=== PATIENT | female | born 1960 | race Caucasian/White ===

== ENCOUNTER 2022-08-02 12:14 | Emergency (ER) | payer OTHER ==
[2022-08-02] MEDS ORDERED: ALBUTEROL 2.5 MG/3 ML NEB SOL ONE ×3 (12:39→15:33)
[2022-08-02] MEDS ORDERED: IPRATROPIUM BROM 0.5MG/2.5ML ONE (12:39)
[2022-08-02] MEDS ORDERED: IBUPROFEN 400 MG TAB ONE (12:40)
[2022-08-02] MEDS ORDERED: IBUPROFEN 200 MG TAB PO ONE (12:41)
[2022-08-02 14:07] LABS: SARS-COV-2 RT PCR NEGATIVE (NEGATIVE)
--- NOTE | 2022-08-02 14:59 | RAD REPORT ---
EXAM DESCRIPTION: RAD - Chest Single View - 08/02/2022 2:45 pm CLINICAL HISTORY: Cough COMPARISON: No comparisons FINDINGS: Lines: None. Lungs: No evidence of edema or pneumonia. Pleural: No significant pleural effusions or pneumothorax. Cardiac: The heart size is within normal limits. Mediastinum: Within normal limits. Bones: No acute fractures. Other: Surgical clips in the left axilla. IMPRESSION: No acute cardiopulmonary disease.
--- NOTE | 2022-08-02 16:42 | EDPHYS ---
Physician Documentation [facility] Name: Galen Meyer Age: 61 yrs Sex: Female : 1960 Arrival Date: 08/02/2022 Time: 12:16 Bed 16 Private MD: ED Physician Tavares Diego HPI: 08/02 14:21 This 61 yrs old Female presents to ER via Ambulatory with complaints of Flu Symptoms, kb Dizziness. 14:21 The patient or guardian reports cough, that is intermittent, described as mild, flu kb symptoms, low-grade fever. Onset: The symptoms/episode began/occurred 3 day(s) ago. Severity of symptoms: At their worst the symptoms were moderate, in the emergency department the symptoms are unchanged. Modifying factors: The symptoms are alleviated by nothing, the symptoms are aggravated by nothing. Associated signs and symptoms: Pertinent positives: fever, Pertinent negatives: chest pain, diarrhea, ear ache, nausea, rhinorrhea, sore throat, vomiting. The patient has not experienced similar symptoms in the past. The patient has not recently seen a physician. Pt reports cough for 2 months that has been nagging, but Sunday it got worse with congestion, fever, headache and malaise. Historical: - Allergies: 12:29 No Known Allergies; ll1 - PMHx: 12:29 Hypertensive disorder; Diabetes mellitus; Hypercholesterolemia; ll1 - PSHx: 12:29 Cholecystectomy; "tubes tied"; ll1 - Immunization history:: Client reports receiving the 2nd dose of the Covid vaccine. - Social history:: Smoking status: Patient denies any tobacco usage or history of. ROS: 14:21 Cardiovascular: Negative for chest pain, palpitations, and edema. kb 14:21 Constitutional: Positive for fever, malaise. 14:21 ENT: Positive for sinus congestion. 14:21 Respiratory: Positive for cough. 14:21 Neuro: Positive for headache. 14:21 All other systems are negative. Exam: 14:21 Constitutional: This is a well developed, well nourished patient who is awake, alert, kb and in no acute distress. Head/Face: Normocephalic, atraumatic. ENT: Moist Mucous membranes Cardiovascular: Regular rate and rhythm with a normal S1 and S2. No gallops, murmurs, or rubs. No pulse deficits. Respiratory: Respirations even and unlabored. No increased work of breathing. Talking in full sentences Abdomen/GI: Soft, non-tender. No distention Skin: Warm, dry with normal turgor. Normal color. MS/ Extremity: Pulses equal, no cyanosis. Neurovascular intact. Full, normal range of motion. Neuro: Awake and alert, GCS 15, oriented to person, place, time, and situation. Moves all extremities. Normal gait. 14:21 Respiratory: Breath sounds: are clear throughout. Vital Signs: 12:29 BP 138 / 106; Pulse 140; Resp 18; Temp 101.3(O); Pulse Ox 96% on R/A; Weight 85.73 kg; ll1 Height 5 ft. 6 in. (167.64 cm); Pain 5/10; 13:00 BP 141 / 92; Pulse 107; Resp 18; Pulse Ox 85% on R/A; db 13:05 Pulse Ox 94% on 2 lpm NC; db 14:00 BP 129 / 87; Pulse 97; Resp 16; Pulse Ox 95% on 2 lpm NC; db 15:00 BP 111 / 76; Pulse 94; Resp 15; Pulse Ox 92% on R/A; db 15:36 BP 113 / 68; Pulse 96; Resp 18; Pulse Ox 94% on Nebulizer Mask; db 16:30 BP 113 / 73; Pulse 101; Resp 16; Pulse Ox 100% on R/A; db 16:40 Pulse 103; Resp 18; Temp 98.5; Pulse Ox 99% ; kb 17:23 BP 108 / 68; Pulse 99; Resp 20; Temp 98.6(O); Pulse Ox 95% on R/A; Pain 0/10; db 12:29 Body Mass Index 30.51 (85.73 kg, 167.64 cm) ll1 MDM: 12:23 Patient medically screened. kb 14:20 Data reviewed: vital signs, nurses notes. Data interpreted: Pulse oximetry: on room air kb is 96 %. Interpretation: normal. 16:41 Counseling: I had a detailed discussion with the patient and/or guardian regarding: the kb historical points, exam findings, and any diagnostic results supporting the discharge/admit diagnosis, lab results, radiology results, the need for outpatient follow up, a family practitioner, to return to the emergency department if symptoms worsen or persist or if there are any questions or concerns that arise at home. ED course: Pt prefers to go home. oxygen saturation 96-99% on room air. Pt is feeling better. Discussed return precautions. Pt will return for any shortness of breath. 08/02 12:35 Order name: COVID-19/FLU A+B/RSV; Complete Time: 14:18 kb 08/02 12:35 Order name: Chest Single View XRAY; Complete Time: 14:59 kb 08/02 13:54 Order name: Vital Signs; Complete Time: 15:30 kb 08/02 16:37 Order name: Vital Signs; Complete Time: 17:04 kb Administered Medications: 12:44 Drug: Ibuprofen 600 mg Route: PO; db 13:26 Follow up: Response: No adverse reaction db 12:44 Drug: Albuterol 2.5 mg Route: Inhalation; db 13:26 Follow up: Response: No adverse reaction db 12:44 Drug: AtroVENT (ipratropium) Aerosol 0.5 mg Route: Inhalation; db 13:26 Follow up: Response: No adverse reaction db 13:27 Drug: Albuterol 2.5 mg Route: Inhalation; db 15:30 Follow up: Response: No adverse reaction db 15:35 Drug: Albuterol 2.5 mg Route: Inhalation; db 17:23 Follow up: Response: No adverse reaction db 17:18 Drug: predniSONE 40 mg Route: PO; db 17:23 Follow up: Response: No adverse reaction db Disposition Summary: 08/02/22 16:42 Discharge Ordered Location: Home kb Condition: Stable kb Diagnosis - Influenza due to identified novel influenza A virus kb Followup: kb - With: Emergency Department - When: As needed - Reason: Worsening of condition Followup: kb - With: Private Physician - When: 2 - 3 days - Reason: Recheck today's complaints, Continuance of care, Re-evaluation by your physician Discharge Instructions: - Discharge Summary Sheet kb - Influenza, Adult, [id number] kb Forms: - Medication Reconciliation Form kb - Thank You Letter kb - Antibiotic Education kb - Prescription Opioid Use kb Prescriptions: - Prednisone 20 mg Oral Tablet - take 1 tablet by ORAL route once daily for 5 days; 5 tablet; Refills: 0, kb Product Selection Permitted - Tamiflu 75 mg Oral Capsule - take 1 tablet by ORAL route every 12 hours for 5 days; 10 tablet; Refills: 0, kb Product Selection Permitted Addendum: 08/05/2022 20:20 Co-signature as Attending Physician, Tavares Diego MD I agree with the assessment and r t plan of care. Signatures: Dispatcher [employer] Earnestine Enrique, [facility] INFORMATION PROVIDER-Jaspreet De Los Santos RN RN ll1 Karen Randall RN RN db Tavares Diego MD MD rt
--- NOTE | 2022-08-02 16:42 | ER ---
Nurse's Notes [facility] Name: Galen Meyer Age: 61 yrs Sex: Female : 1960 Arrival Date: 08/02/2022 Time: 12:16 Bed 16 Private MD: Diagnosis: Influenza due to identified novel influenza A virus Presentation: 08/02 12:29 Chief complaint: Patient states: Cough for 2 months. Chest congestion, cough, HEATON, dizzy ll1 since Sunday. 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 Coronavirus screen: Vaccine status: Patient reports receiving the 2nd dose of the covid vaccine. Client denies travel out of the [place] in the last 14 days. congestion, cough unrelated to allergies, fatigue, fever, headache, Client presents with at least one sign or symptom that may indicate coronavirus-19. Standard/surgical mask placed on the client. Ebola Screen: Patient denies travel to an Ebola-affected area in the 21 days before illness onset. Initial Sepsis Screen: Does the patient meet any 2 criteria? Temp <36.0*C (96.8*F)) or > 38.3*C (100.9*F). HR > 90 bpm. No. Patient's initial sepsis screen is negative. Does the patient have a suspected source of infection? Yes: Productive cough/pneumonia. Risk Assessment: Do you want to hurt yourself or someone else? Patient reports no desire to harm self or others. Onset of symptoms was July 31, 2022. 12:29 Method Of Arrival: Ambulatory ll1 12:29 Acuity: [place] 2 ll1 Triage Assessment: 12:31 General: Appears uncomfortable, ill, Behavior is cooperative, appropriate for age. ll1 Pain: Complains of pain in head Pain currently is 5 out of 10 on a pain scale. Quality of pain is described as aching. EENT: Reports nasal congestion. Neuro: Reports dizziness, headache weakness. Respiratory: Reports cough that is. Historical: - Allergies: 12:29 No Known Allergies; ll1 - PMHx: 12:29 Hypertensive disorder; Diabetes mellitus; Hypercholesterolemia; ll1 - PSHx: 12:29 Cholecystectomy; "tubes tied"; ll1 - Immunization history:: Client reports receiving the 2nd dose of the Covid vaccine. - Social history:: Smoking status: Patient denies any tobacco usage or history of. Screenin:26 Abuse screen: Denies threats or abuse. Denies injuries from another. Nutritional db screening: No deficits noted. Tuberculosis screening: No symptoms or risk factors identified. Fall Risk None identified. No fall in past 12 months (0 pts). No secondary diagnosis (0 pts). No IV (0 pts). Ambulatory Aid- None/Bed Rest/Nurse Assist (0 pts). Gait- Normal/Bed Rest/Wheelchair (0 pts) Mental Status- Oriented to own ability (0 pts). Total Cortez Fall Scale indicates No Risk (0-24 pts). Assessment: 12:40 Reassessment: SOB started Sunday worse today. Cardiovascular: Rhythm is sinus db tachycardia. Respiratory: Reports shortness of breath cough that is Airway is patent Respiratory effort is even, labored, Respiratory pattern is regular, symmetrical, Breath sounds are coarse bilaterally. the patient has moderate shortness of breath. GI: No deficits noted. No signs and/or symptoms were reported involving the gastrointestinal system. 13:12 Reassessment: Patient appears in no apparent distress at this time. patient states db feels better after the breathing treatment. 13:28 Reassessment:. Respiratory: Respiratory effort is even, labored, Breath sounds are db coarse bilaterally. 15:00 Reassessment: Patient appears in no apparent distress at this time. No changes from db previously documented assessment. Patient and/or family updated on plan of care and expected duration. Pain level reassessed. Patient is alert, oriented x 3, equal unlabored respirations, skin warm/dry/pink. 16:00 Reassessment: Patient appears in no apparent distress at this time. No changes from db previously documented assessment. Patient and/or family updated on plan of care and expected duration. Pain level reassessed. Patient is alert, oriented x 3, equal unlabored respirations, skin warm/dry/pink. 17:06 Reassessment: Patient appears in no apparent distress at this time. No changes from db previously documented assessment. Patient and/or family updated on plan of care and expected duration. Pain level reassessed. Patient is alert, oriented x 3, equal unlabored respirations, skin warm/dry/pink. Patient states feeling better. Patient states symptoms have improved. Vital Signs: 12:29 BP 138 / 106; Pulse 140; Resp 18; Temp 101.3(O); Pulse Ox 96% on R/A; Weight 85.73 kg; ll1 Height 5 ft. 6 in. (167.64 cm); Pain 5/10; 13:00 BP 141 / 92; Pulse 107; Resp 18; Pulse Ox 85% on R/A; db 13:05 Pulse Ox 94% on 2 lpm NC; db 14:00 BP 129 / 87; Pulse 97; Resp 16; Pulse Ox 95% on 2 lpm NC; db 15:00 BP 111 / 76; Pulse 94; Resp 15; Pulse Ox 92% on R/A; db 15:36 BP 113 / 68; Pulse 96; Resp 18; Pulse Ox 94% on Nebulizer Mask; db 16:30 BP 113 / 73; Pulse 101; Resp 16; Pulse Ox 100% on R/A; db 16:40 Pulse 103; Resp 18; Temp 98.5; Pulse Ox 99% ; kb 17:23 BP 108 / 68; Pulse 99; Resp 20; Temp 98.6(O); Pulse Ox 95% on R/A; Pain 0/10; db 12:29 Body Mass Index 30.51 (85.73 kg, 167.64 cm) ll1 ED Course: 12:16 Patient arrived in ED. mr 12:16 Earnestine Arzate [facility]C [facility] kb 12:16 Tavares Diego MD is Attending Physician. kb 12:29 Arm band placed on Patient placed in an exam room, on a stretcher. ll1 12:31 Triage completed. ll1 12:33 Notified Nurse Practitioner and/or Physician Humane Agent of vital signs. ll1 12:44 Karen Randall, YSABEL is Primary Nurse. db 12:55 Oxygen administered via a nebulizer mask. Response to oxygen therapy: symptoms improved.db 12:55 Oxygen administration via nasal cannula patient placed on O2 due to O2 saturation db dropped to 85% on room air after breathing treatment. Patient O2 saturation increased to 93%. 14:47 Chest Single View XRAY In Process Unspecified. EDMS 17:23 Patient has correct armband on for positive identification. Bed in low position. Call db light in reach. Side rails up X 1. 17:23 No provider procedures requiring assistance completed. Patient did not have IV access db during this emergency room visit. Administered Medications: 12:44 Drug: Ibuprofen 600 mg Route: PO; db 13:26 Follow up: Response: No adverse reaction db 12:44 Drug: Albuterol 2.5 mg Route: Inhalation; db 13:26 Follow up: Response: No adverse reaction db 12:44 Drug: AtroVENT (ipratropium) Aerosol 0.5 mg Route: Inhalation; db 13:26 Follow up: Response: No adverse reaction db 13:27 Drug: Albuterol 2.5 mg Route: Inhalation; db 15:30 Follow up: Response: No adverse reaction db 15:35 Drug: Albuterol 2.5 mg Route: Inhalation; db 17:23 Follow up: Response: No adverse reaction db 17:18 Drug: predniSONE 40 mg Route: PO; db 17:23 Follow up: Response: No adverse reaction db Medication: 17:23 VIS not applicable for this client. db Outcome: 16:42 Discharge ordered by . kb 17:23 Discharged to home ambulatory, with significant other. db 17:23 Condition: stable 17:23 Discharge instructions given to patient, significant other, Instructed on discharge instructions, follow up and referral plans. Demonstrated understanding of follow-up care, Prescriptions given X 2. 17:24 Patient left the ED. db Signatures: Dispatcher [employer] EDMS Earnesitne Arzate, TEREZAC ARMATURE BALANCER-Pattie RyanaShagufta mr Jaspreet Ayala, RN RN ll1 Karen Randall, RN RN db Corrections: (The following items were deleted from the chart) 13:16 13:11 Oxygen administered via a nebulizer mask. Response to oxygen therapy: symptoms db improved. db 15:35 15:00 BP 111 / 76; Pulse 94bpm; Resp 15bpm; Pulse Ox 92% 2 lpm Nasal Cannula; db db
[2022-08-02] MEDS ORDERED: predniSONE 20 MG TAB ONE (17:18)
[2022-08-02 17:38] VITALS: BP 108/68; TEMP 98.6; O2SAT 95
== END 2022-08-02 17:24 | disposition home or self-care (01) ==
LOC: ER 12:14
DX: J10.1 Influenza due to other identified influenza virus with other respiratory manifestations (principal); Z20.822 Contact with and (suspected) exposure to COVID-19; E11.9 Type 2 diabetes mellitus without complications; I10 Essential (primary) hypertension
CPT/HCPCS: 0241U; 71045; 99285; J7512; J7613 ×3; J7644